=== PATIENT | male | born 1980 | race African-American/Black ===

== ENCOUNTER 2016-10-05 14:08 | Emergency (ER) | payer SELFPAY ==
--- NOTE | 2016-10-05 14:40 | ER Document Report ---
ED Medical Screen (RME) - General Stated Complaint: BACK PAIN Notes: back pain for about 3 months that comes and goes. localized over the middle but denies sciatica. 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 I have greeted and performed a rapid initial assessment of this patient. A comprehensive ED assessment and evaluation of the patient, analysis of test results and completion of the medical decision making process will be conducted by additional ED providers. TRAVEL OUTSIDE OF THE [place] IN LAST 30 DAYS: No - Related Data Allergies/Adverse Reactions: acetaminophen [From Percocet] Allergy (Verified 01/08/15 14:32) oxycodone HCl [From Percocet] Allergy (Verified 01/08/15 14:32) Past Medical History - Social History Family history: Reviewed & Not Pertinent Psychiatric Medical History: Reports: Hx Depression - Immunizations Hx Diphtheria, Pertussis, Tetanus Vaccination: No Physical Exam - Vital signs Vitals: Temp Pulse Resp BP Pulse Ox 98.1 F 86 17 111/75 99 10/05/16 14:35 10/05/16 14:35 10/05/16 14:35 10/05/16 14:35 10/05/16 14:35 Course - Vital Signs Vital signs: Temp Pulse Resp BP Pulse Ox 98.1 F 86 17 111/75 99 10/05/16 14:35 10/05/16 14:35 10/05/16 14:35 10/05/16 14:35 10/05/16 14:35
--- NOTE | 2016-10-05 15:18 | ER Document Report ---
ED Neck/Back Problem - General Chief Complaint: Back Pain Stated Complaint: BACK PAIN Time seen by provider: 15:18 Mode of Arrival: Ambulatory Information source: Patient Notes: 36-year-old male presents to ED for low back pain for the last 1-2 years worse for the last 3 months. He denies any saddle anesthesia urinary symptoms sciatica or loss of sensation. TRAVEL OUTSIDE OF THE [place] IN LAST 30 DAYS: No - HPI Patient complains to provider of: Pain, Lower back. No: Injury, Neck, Upper back Onset: Other - Chronic Onset: Chronic Timing: Worse Quality of pain: Sharp Severity: Moderate Pain Level: 3 Context: Other - States it hurts worse when he sits or lays in one position and moves Recent injury: No Associated symptoms: Like prior neck/back pain, Lower back pain. denies: Constipation, Fever, Incontinence, Motor loss, Numbness/tingling, Radiation to leg, Sensory loss, Unable to urinate Exacerbated by: Other - Standing in one position for long time and the movement Relieved by: Nothing Similar symptoms previously: Yes Recently seen / treated by doctor: No - Related Data Allergies/Adverse Reactions: acetaminophen [From Percocet] Allergy (Verified 01/08/15 14:32) oxycodone HCl [From Percocet] Allergy (Verified 01/08/15 14:32) Past Medical History - General Information source: Patient - Social History Smoking Status: Never Smoker Cigarette use (# per day): No Chew tobacco use (# tins/day): No Smoking Education Provided: No Frequency of alcohol use: Social Drug Abuse: None Occupation: recycling plant Lives with: Spouse/Significant other Family History: Arthritis, Hyperlipidemia, Hypertension, Malignancy Patient has suicidal ideation: No Patient has homicidal ideation: No - Past Medical History Cardiac Medical History: Reports: None Pulmonary Medical History: Reports: None EENT Medical History: Reports: None Neurological Medical History: Reports: None Endocrine Medical History: Reports: None Renal/ Medical History: Reports: None Malignancy Medical History: Reports None GI Medical History: Reports: None Musculoskeltal Medical History: Reports Hx Arthritis, Reports Hx Musculoskeletal Deformity, Reports Hx Musculoskeletal Trauma Skin Medical History: Reports None Psychiatric Medical History: Reports: None Traumatic Medical History: Reports: Hx Fractures - Fractured ankle Infectious Medical History: Reports: None Past Surgical History: Reports: Hx Inguinal Hernia - Immunizations Hx Diphtheria, Pertussis, Tetanus Vaccination: No Review of Systems - Review of Systems Constitutional: No symptoms reported EENT: No symptoms reported Cardiovascular: No symptoms reported Respiratory: No symptoms reported Gastrointestinal: No symptoms reported Genitourinary: No symptoms reported Male Genitourinary: No symptoms reported Musculoskeletal: Back pain, Muscle pain Skin: No symptoms reported Hematologic/Lymphatic: No symptoms reported Neurological/Psychological: No symptoms reported. denies: Sensory change, Weakness, Gait changes, Loss of power, Paralysis, Numbness, Tingling -: Yes All other systems reviewed and negative Physical Exam - Vital signs Vitals: Temp Pulse Resp BP Pulse Ox 98.1 F 86 17 111/75 99 10/05/16 14:35 10/05/16 14:35 10/05/16 14:35 10/05/16 14:35 10/05/16 14:35 Interpretation: Normal - General General appearance: Appears well, Alert - HEENT Head: Normocephalic, Atraumatic Eyes: Normal Pupils: PERRL - Respiratory Respiratory status: No respiratory distress Chest status: Nontender Breath sounds: Normal Chest palpation: Normal - Cardiovascular Rhythm: Regular Heart sounds: Normal auscultation Murmur: No - Abdominal Inspection: Normal Distension: No distension Bowel sounds: Normal Tenderness: Nontender Organomegaly: No organomegaly - Back Back: Normal, Tender, Vertebra tenderness - Lumbar area and bilateral muscular pain. No: Deformity/step-off, CVA tenderness, Scars, Scoliosis, Wounds - Extremities General upper extremity: Normal inspection, Nontender, Normal color, Normal ROM , Normal temperature General lower extremity: Normal inspection, Nontender, Normal color, Normal ROM , Normal temperature, Normal weight bearing. No: Sneha's sign - Neurological Neuro grossly intact: Yes Cognition: Normal Orientation: AAOx4 [place] Coma Scale Eye Opening: Spontaneous [place] Coma Scale Verbal: Oriented [place] Coma Scale Motor: Obeys Commands [place] Coma Scale Total: 15 Speech: Normal Motor strength normal: LUE, RUE, LLE, RLE Sensory: Normal - Psychological Associated symptoms: Normal affect, Normal mood - Skin Skin Temperature: Warm Skin Moisture: Dry Skin Color: Normal Course - Re-evaluation Re-evalutation: 10/05/16 18:48 X-rays discussed with patient. Patient did not have any signs of cauda equina. No loss of sensation no loss of control of bowel or bladder. Patient is able to move full range of motion. Patient was discharged home with instructions for ice and warm packs, back exercises, and ibuprofen. - Vital Signs Vital signs: Temp Pulse Resp BP Pulse Ox 97.9 F 89 14 108/82 98 10/05/16 16:29 10/05/16 16:29 10/05/16 16:29 10/05/16 16:29 10/05/16 16:29 - Diagnostic Test Radiology reviewed: Image reviewed, Reports reviewed Discharge - Discharge Clinical Impression: Low back pain Qualifiers: Chronicity: chronic Back pain laterality: unspecified Sciatica presence: without sciatica Qualified Code(s): M54.5 - Low back pain Condition: Stable Disposition: HOME, SELF-CARE Instructions: Family Physicians / Practices, Stretching Exercises for the Back ([facility]) Additional Instructions: LOW BACK PAIN: Three out of every four people will have an episode of disabling back pain during their lifetime. Most commonly the pain is due to straining of the muscles and ligaments in the low back. Usual treatment includes: (1) Rest on a firm surface. Avoid lying on your stomach. (2) Ice pack the painful area. After a few days, gentle heat may be used intermittently to relax the area, or ice packs can be continued. (3) Medication may be needed -- muscle relaxers and antiinflammatory medicines are commonly used. (4) As the back improves, exercises are prescribed to strengthen the back and abdominal muscles. Your doctor will advise you on the proper care for your back at each stage in your recovery. You may be better in a few days -- or healing may take several weeks. If new symptoms of a "herniated disc" (radiation of pain, numbness, or tingling down the back of the leg or weakness in the leg) occur, you should be re-examined. Further testing may be necessary. Ibuprofen Ibuprofen is an excellent, safe drug for pain control. In addition, it has potent antiinflammatory effects which are beneficial, especially in the treatment of injuries, arthritis, or tendonitis. It's best to take ibuprofen with food. Persons with ulcer disease or allergy to aspirin should notify their physician of this before taking ibuprofen. Take the medication exactly as prescribed. Don't take additional doses unless instructed to do so by your doctor. If you develop wheezing, shortness of breath, hives, faintness, stomach pain, vomiting, or dark black stools, return for re-evaluation at once MUSCLE RELAXERS: Muscle relaxing medications are usually prescribed for acute muscle spasm or injury to the neck and back. They are often combined with antiinflammatory pain medication for increased relief. You may stop the muscle relaxer when the pain and stiffness have improved. Start the medication again if spasms recur. Muscle relaxers may cause drowsiness, especially with the first dose. Do not operate machinery or drive while under the effects of the medication. Most muscle relaxers last up to 24 hours. Do not combine the medication with alcohol. ICE PACKS: Apply ice packs frequently against the painful area. Many different schedules are recommended, such as "20 minutes on, 20 minutes off" or "one hour ice, two hours rest." If you need to work, you may need to go longer between ice treatments. You should plan to have the area ice packed AT LEAST one fourth of the time. The ice should be applied over the wrap, tape, or splint, or over a layer of cloth -- not directly against the skin. Some ice bags have a built-in cloth and can be put directly on the skin. WARM PACKS: After approximately two days, apply gentle heat (such as a heating pad or hot water bottle) for about 20 to 30 minutes about every two hours -- at least four times daily. Warmth and elevation will help you make a more rapid recovery , and will ease the pain considerably. Do not use HOT heat, and never apply heat for longer than 30 minutes. The continuous heat can invisibly damage skin and muscles -- even when no burn is seen on the surface. Damaged muscles can make you MORE sore. FOLLOW-UP CARE: If you have been referred to a physician for follow-up care, call the physician s office for an appointment as you were instructed or within the next two days. If you experience worsening or a significant change in your symptoms, notify the physician immediately or return to the Emergency Department at any time for re-evaluation. Forms: Return to Work
[2016-10-05 17:18] VITALS: BP 108/82
== END 2016-10-05 16:29 | disposition home or self-care (01) ==
LOC: ER 14:08
DX: M54.5 Low back pain (principal); M54.9 Dorsalgia, unspecified
CPT/HCPCS: 72110; 99283

== ENCOUNTER 2017-05-10 16:52 | Emergency (ER) | payer MEDICAID, OTHER ==
--- NOTE | 2017-05-10 17:25 | ER Document Report ---
ED Extremity Problem, Upper - General Chief Complaint: Elbow Injury Stated Complaint: RIGHT ARM PAIN Mode of Arrival: Ambulatory Information source: Patient TRAVEL OUTSIDE OF THE [place] IN LAST 30 DAYS: No - HPI Patient complains to provider of: Injury, Pain Onset: This morning Recent injury: Yes Where: Indoors Quality of pain: Achy Severity of pain: Moderate Context: Crushed Associated symptoms: denies: Back pain, Chest pain/discomfort, Chills, Dizziness , Fainted, Fever, Hurts to breathe, Jaw pain, Nausea, Neck pain, Numbness, Seizure, Short of breath, Sweating, Tingling, Vomiting Exacerbated by: Movement Relieved by: Rest Notes: Patient states that he was moving a dresser today at work when his elbow was cut between the dresser and a door jam. Since that time he has had right elbow pain. He feels like he cannot completely supinate and pronate the elbow secondary to pain. No fever. No redness. He denies any numbness, tingling, weakness. He denies any other injuries. He has no other complaints at this time. Past Medical History - Social History Smoking Status: Unknown if Ever Smoked Family History: Arthritis, Hyperlipidemia, Hypertension, Malignancy Patient has suicidal ideation: No Renal/ Medical History: Denies: Hx Peritoneal Dialysis Musculoskeltal Medical History: Reports Hx Arthritis, Reports Hx Musculoskeletal Deformity, Reports Hx Musculoskeletal Trauma Psychiatric Medical History: Reports: Hx Depression Traumatic Medical History: Reports: Hx Fractures - Fractured ankle Past Surgical History: Reports: Hx Inguinal Hernia - Immunizations Hx Diphtheria, Pertussis, Tetanus Vaccination: No Review of Systems - Review of Systems -: Yes All other systems reviewed and negative Physical Exam - Vital signs Vitals: Pulse Resp BP Pulse Ox 65 20 115/74 100 05/10/17 17:05 05/10/17 17:05 05/10/17 17:05 05/10/17 17:05 - Notes Notes: GENERAL: alert, cooperative, nontoxic, no distress. HEAD: normocephalic, atraumatic EYES: conjunctiva pink without discharge, no external redness or swelling. EARS: no external swelling, no external redness NOSE: atraumatic, no external swelling MOUTH/THROAT: mucous membranes moist and pink NECK: soft, supple, full range of motion, no meningismus. CHEST: no distress, lungs clear and equal throughout. No wheezing, rales, rhonchi. CARDIAC: regular rate and rhythm, no murmur, normal capillary refill, normal pulses. BACK: full range of motion, no CVA tenderness. EXTREMITIES: Tenderness to palpation to the right medial and lateral epicondyles of the elbow. No olecranon tenderness. No swelling. No redness. Full flexion and extension of the right elbow. Slight decreased pronation. Normal pulse and sensation distally. No shoulder tenderness. Forearm and wrist are normal. NEURO: alert and oriented 3, no focal deficits, full range of motion of all extremities. PYSCH: appropriate mood, affect. Patient is cooperative. SKIN: pink, warm, dry, no rash. Course - Re-evaluation Re-evalutation: 05/10/17 18:31 Patient is nontoxic appearing with stable vitals. The patient had his right elbow caught between a dresser and doorjamb while moving a dresser earlier today. Noted to have some pain to this area now. No redness, no swelling, no signs of infection. Neurovascularly is intact. Compartments are soft. X-ray show no acute fracture. The patient had an Emile wrap applied for comfort. Discharged home with Voltaren as needed for pain. Rest, ice, elevate. Follow- up if not better in 1 week, sooner for increased pain, fever, redness, numbness , tingling, weakness, any further concerns. The patient's emergency department workup and current diagnosis were explained to the patient and or family. Follow-up instructions were provided. Medications if prescribed were discussed. Instructions for when to return to the emergency department including specific worrisome symptoms were discussed with the patient and/or family. - Vital Signs Vital signs: Temp Pulse Resp BP Pulse Ox 65 20 115/74 100 05/10/17 17:05 05/10/17 17:05 05/10/17 17:05 05/10/17 17:05 - Diagnostic Test Radiology reviewed: Image reviewed, Reports reviewed - Negative right elbow Procedures - Immobilization Right elbow Pre-Proc Neuro Vasc Exam: Normal Immobilizer type: Emile wrap Performed by: PCT Post-Proc Neuro Vasc Exam: Normal Discharge - Discharge Clinical Impression: Contusion of right elbow Qualifiers: Encounter type: initial encounter Qualified Code(s): S50.01XA - Contusion of right elbow, initial encounter Condition: Stable Disposition: HOME, SELF-CARE Instructions: Contusion ([facility]) Additional Instructions: Take medications as prescribed. Wear Emile wrap as needed for comfort. Rest, ice , elevate your injury. Follow-up if not better in 1 week, sooner for increased pain, fever, weakness, any further concerns. Prescriptions: Diclofenac Sodium [Voltaren] 75 mg PO BID #20 tablet.dr Forms: Return to Work
--- NOTE | 2017-05-10 18:10 | RADIOLOGY REPORT (SQ) ---
EXAM DESCRIPTION: ELBOW RIGHT OVER 2 VIEWS COMPLETED DATE/TIME: 05/10/2017 5:41 pm REASON FOR STUDY: ELBOW PAIN COMPARISON: None. NUMBER OF VIEWS: Four views. TECHNIQUE: AP, lateral, and both oblique radiographic images acquired of the right elbow. LIMITATIONS: None. FINDINGS: MINERALIZATION: Normal. BONES: No acute fracture or dislocation. No worrisome bone lesions. JOINT: No effusion. SOFT TISSUES: No soft tissue swelling. No foreign body. OTHER: No other significant finding. IMPRESSION: NO RADIOGRAPHIC EVIDENCE OF ACUTE INJURY. TECHNICAL DOCUMENTATION: JOB ID: [id number] [employer]- All Rights Reserved
[2017-05-10 18:44] VITALS: BP 109/72
== END 2017-05-10 18:41 | disposition home or self-care (01) ==
LOC: ER 16:52
DX: S50.01XA Contusion of right elbow, initial encounter (principal); W23.0XXA Caught, crushed, jammed, or pinched between moving objects, initial encounter; Y93.89 Activity, other specified; Y99.0 Civilian activity done for income or pay; M25.521 Pain in right elbow
CPT/HCPCS: 99283

== ENCOUNTER 2019-01-06 13:40 | Emergency (ER) | payer OTHER ==
[2019-01-06] MEDS ORDERED: KETOROLAC TROMETHAMINE 60 MG/2 ML SDV IM ONE (14:56)
[2019-01-06] MEDS ORDERED: CYCLOBENZAPRINE HCL 10 MG TABLET PO ONE (14:56)
[2019-01-06] MEDS ORDERED: LIDOCAINE 5% (700 MG) TRANSDERMAL ADH..PATCH TP ONE (14:56)
--- NOTE | 2019-01-06 15:00 | ER Document Report ---
HPI - HPI Patient complains to provider of: lower back pain Time Seen by Provider: 01/06/19 14:44 Pain Level: 4 Context: Patient is a 30-year-old male presents to the emergency department for lower back pain. Patient states he attempted to pick something up at work. States he was heavier when he was twisting he immediately felt pain in his lower back. Patient states he is continued pain since which is why he presents to the emergency room. Patient's denying any numbness or tingling in any extremity. Patient's denying any urinary incontinence, bladder incontinence, urinary retention. Patient denies any actual trauma to his lower back. Past Medical History - General Information source: Patient - Social History Smoking Status: Unknown if Ever Smoked Family History: Arthritis, Hyperlipidemia, Hypertension, Malignancy Renal/ Medical History: Denies: Hx Peritoneal Dialysis Musculoskeletal Medical History: Reports Hx Arthritis, Reports Hx Musculoskeletal Deformity, Reports Hx Musculoskeletal Trauma Psychiatric Medical History: Reports: Hx Depression Traumatic Medical History: Reports: Hx Fractures - Fractured ankle Past Surgical History: Reports: Hx Inguinal Hernia - Immunizations Hx Diphtheria, Pertussis, Tetanus Vaccination: No Vertical Provider Document - CONSTITUTIONAL Agree With Documented VS: Yes Notes: GENERAL: Alert, interacts well. No acute distress. HEAD: Normocephalic, atraumatic. EYES: Pupils equal, round, and reactive to light. Extraocular movements intact. ENT: Oral mucosa moist, tongue midline. NECK: Full range of motion. Supple. Trachea midline. LUNGS: Clear to auscultation bilaterally, no wheezes, rales, or rhonchi. No respiratory distress. HEART: Regular rate and rhythm. No murmur ABDOMEN: Soft, non-tender. Non-distended. Bowel sounds present in all 4 quadrants. EXTREMITIES: Moves all 4 extremities spontaneously. No edema, normal radial and dorsalis pedis pulses bilaterally. No cyanosis. 5 out of 5 strength all 4 extremities. Bilateral paraspinal lumbar pain BACK: no cervical, thoracic, lumbar midline tenderness. No saddle anesthesia, normal distal neurovascular exam. Bilateral lumbar paraspinal pain nonradiating to buttocks. NEUROLOGICAL: Alert and oriented x3. Normal speech. cranial nerves II through XII grossly intact PSYCH: Normal affect, normal mood. SKIN: Warm, dry, normal turgor. No rashes or lesions noted. - INFECTION CONTROL TRAVEL OUTSIDE OF THE [place] IN LAST 30 DAYS: No Course - Re-evaluation Re-evalutation: 01/06/19 14:58 Presentation of a well appearing patient complaining of acute No trauma, systemic symptoms including fevers, chills, weight loss, history of recent bacterial infection, bilateral symptoms, numbness, weakness, difficulty walking, urinary retention or bowel incontinence, personal history of cancer, immunosuppression, diabetes, known AAA, or history of IV drug use. Exam is without point tenderness over vertebral bodies, pulsatile abdominal mass, and patient has symmetric and intact lower extremity strength, sensation, and reflexes without clonus. 2+ symmetric medial malleolar and dorsalis pedis pulses Based on history and physical, I have a very low suspicion of a concerning etiology of pain including epidural compression syndrome, spinal infection, transverse myelitis, malignancy, abdominal aortic aneurysm, renal colic, acute lower extremity claudication, neurogenic claudication, ankylosing spondylitis, or other intra-abdominal process. Due to absence of concerning risk factors in history and physical as well as absence of rapidly progressive, severe, or bilateral symptoms, will defer imaging at this point. Plan to manage conservatively with outpatient analgesia, analgesia, and physical therapy. - Acetaminophen 650 q 4 + ibuprofen 600 q 6 - Continue normal daily activities as tolerated by pain - Provide with standard musculoskeletal back pain exercise instructions - Instruct to follow up with primary care provider if symptoms not improving - Provide careful return precautions and concerning symptoms to watch for. - Vital Signs Vital signs: Temp Pulse Resp BP Pulse Ox 98.2 F 91 18 121/71 98 01/06/19 14:07 01/06/19 14:07 01/06/19 14:07 01/06/19 14:07 01/06/19 14:07 Discharge - Discharge Clinical Impression: Lumbar back pain Condition: Stable Disposition: HOME, SELF-CARE Instructions: Low Back Pain ([facility]), Muscle Strain ([facility]), Warm Packs ([facility]), Pain Medication Injection ([facility]) Additional Instructions: You have been seen in the Emergency Department (ED) today for back pain. Your workup and exam have not shown any acute abnormalities and you are likely suffering from muscle strain or possible problems with your discs, but there is no treatment that will fix your symptoms at this time. Please take the naproxen that has been prescribed as directed. You should also purchase a local lidocaine cream such as "aspercreme with lidocaine" and use per bottle instructions to the affected area. Apply heat to the area as often as you are able. Continue to keep active and avoid prolonged periods of bed rest. Please follow up with your doctor as soon as possible regarding today's ED visit and your back pain. Return to the ED for worsening back pain, fever, weakness or numbness of either leg, or if you develop either (1) an inability to urinate or have bowel movements, or (2) loss of your ability to control your bathroom functions (if you start having "accidents"), or if you develop other new symptoms that concern you.concern you. Prescriptions: Cyclobenzaprine HCl [Flexeril 5 mg Tablet] 5 mg PO TID #15 tablet Forms: Return to Work Referrals: TOBI PALMA MD [ACTIVE STAFF] - Follow up as needed
[2019-01-06 15:40] VITALS: BP 107/78
== END 2019-01-06 15:47 | disposition home or self-care (01) ==
LOC: ER 13:40
DX: M54.5 Low back pain (principal); X50.1XXA Overexertion from prolonged static or awkward postures, initial encounter
CPT/HCPCS: 99283; 96372; J1885